=== PATIENT | female | born 1935 | race Caucasian/White ===

== ENCOUNTER 2017-08-07 21:31 | Inpatient (IN) | payer MEDICARE, MEDICAID ==
[~2017-08-07] VITALS: Ht 157.5 cm; Wt 81.8 kg
[2017-08-07 22:39] LABS: CALCIUM 9.3 mg/dL (8.5-10.1); CARBON DIOXIDE 22.6 mmol/L (21-32); CHLORIDE SERUM 105 mmol/L (98-107); CREATININE SERUM 0.8 mg/dL (0.6-1.0); GLUCOSE SERUM 135 mg/dL (74-106); POTASSIUM SERUM 3.9 mmol/L (3.5-5.1); SODIUM SERUM 140 mmol/L (136-145)
[2017-08-07 22:43] LABS: BASOPHIL % 0.9 % (0-2); PLATELET COUNT 403 x10^3mcL (130-400); RED CELL DISTRIBUTION WIDTH 16.6 % (11.5-14.5)
[2017-08-07 22:44] LABS: ALKALINE PHOSPHATASE 86 U/L (46-116); ALT/SGPT 21 U/L (14-59); AST/SGOT 16 U/L (15-37); BILIRUBIN TOTAL 0.83 mg/dL (0.20-1.00); TOTAL PROTEIN, SERUM 7.2 g/dL (6.4-8.2)
[2017-08-07 22:47] LABS: ALBUMIN 3.1 g/dL (3.4-5.0)
[2017-08-07 23:08] LABS: CK-MB 0.6 ng/mL (0-3.6)
[2017-08-07 23:09] LABS: microscopic required? YES; urine erythrocyte NEGATIVE (NEGATIVE)
[2017-08-07] MEDS ORDERED: ELIQUIS5 MG PO (23:53)
[2017-08-07] MEDS ORDERED: TOPROL XL25 MG PO (23:53)
[2017-08-07] MEDS ORDERED: HYDRALAZINE HCL25 MG PO (23:54)
[2017-08-07] MEDS ORDERED: LIPITOR80 MG PO (23:54)
[2017-08-07] MEDS ORDERED: LEVEMIR100 U/M1 SQ (23:56)
[2017-08-07] MEDS ORDERED: NOVI (23:56)
[2017-08-08] VITALS (7 sets, daily range): BP systolic 148–164; BP diastolic 84–99
[2017-08-08 01:56] LABS: FREE T4 1.14 ng/dL (0.76-1.46); FREE THYROXINE INDEX 2.7 ug/dL (1.4-4.5); T4(THYROXINE) 7.9 ug/dL (4.7-13.3)
[2017-08-08 01:57] LABS: T3 TOTAL 1.13 ng/mL
[2017-08-08 02:10] LABS: MAGNESIUM 1.8 mg/dL (1.8-2.4); PHOSPHOROUS 4.3 mg/dL (2.5-4.9)
[2017-08-08 02:22] LABS: CHOLESTEROL/HDL RATIO 2.6
[2017-08-08 06:47] LABS: BASOPHIL % 0.8 % (0-2); PLATELET COUNT 371 x10^3mcL (130-400)
[2017-08-08 06:54] LABS: RED CELL DISTRIBUTION WIDTH 16.4 % (11.5-14.5)
[2017-08-08 07:13] LABS: CALCIUM 8.8 mg/dL (8.5-10.1); CARBON DIOXIDE 22.1 mmol/L (21-32); CHLORIDE SERUM 107 mmol/L (98-107); CREATININE SERUM 0.8 mg/dL (0.6-1.0); GLUCOSE SERUM 143 mg/dL (74-106); POTASSIUM SERUM 3.7 mmol/L (3.5-5.1); SODIUM SERUM 140 mmol/L (136-145)
[2017-08-09 04:22] VITALS: BP 161/76
[2017-08-09 07:39] LABS: BASOPHIL % 0.3 % (0-2); PLATELET COUNT 385 x10^3mcL (130-400)
[2017-08-09 07:45] LABS: RED CELL DISTRIBUTION WIDTH 16.3 % (11.5-14.5)
[2017-08-09 07:54] LABS: CALCIUM 8.5 mg/dL (8.5-10.1); CARBON DIOXIDE 21.6 mmol/L (21-32); CHLORIDE SERUM 109 mmol/L (98-107); CREATININE SERUM 0.8 mg/dL (0.6-1.0); GLUCOSE SERUM 117 mg/dL (74-106); MAGNESIUM 1.6 mg/dL (1.8-2.4); PHOSPHOROUS 4.2 mg/dL (2.5-4.9); POTASSIUM SERUM 3.4 mmol/L (3.5-5.1); SODIUM SERUM 141 mmol/L (136-145)
[2017-08-09 09:26] VITALS: BP 176/90
[2017-08-09 12:44] VITALS: BP 163/94
[2017-08-09 21:18] VITALS: BP 148/91
[2017-08-10 05:21] VITALS: BP 151/82
[2017-08-10 07:14] LABS: CALCIUM 8.5 mg/dL (8.5-10.1); CARBON DIOXIDE 22.4 mmol/L (21-32); CHLORIDE SERUM 109 mmol/L (98-107); CREATININE SERUM 0.8 mg/dL (0.6-1.0); GLUCOSE SERUM 117 mg/dL (74-106); MAGNESIUM 2.1 mg/dL (1.8-2.4); POTASSIUM SERUM 3.6 mmol/L (3.5-5.1); SODIUM SERUM 141 mmol/L (136-145)
[2017-08-10 09:17] VITALS: BP 114/73
[2017-08-10 12:57] VITALS: Ht 157.5 cm; Wt 81.8 kg
[2017-08-10 16:40] VITALS: BP 161/86
[2017-08-10 22:07] VITALS: BP 161/72
[2017-08-11 05:47] VITALS: BP 158/90
[2017-08-11 07:04] LABS: BASOPHIL % 0.5 % (0-2); PLATELET COUNT 389 x10^3mcL (130-400)
[2017-08-11 07:19] LABS: CALCIUM 8.5 mg/dL (8.5-10.1); CARBON DIOXIDE 20.9 mmol/L (21-32); CHLORIDE SERUM 109 mmol/L (98-107); CREATININE SERUM 0.8 mg/dL (0.6-1.0); GLUCOSE SERUM 79 mg/dL (74-106); MAGNESIUM 1.8 mg/dL (1.8-2.4); POTASSIUM SERUM 3.1 mmol/L (3.5-5.1); RED CELL DISTRIBUTION WIDTH 16.3 % (11.5-14.5); SODIUM SERUM 143 mmol/L (136-145)
[2017-08-11 09:54] VITALS: BP 167/93
[2017-08-11 13:18] VITALS: BP 157/96
[2017-08-11 19:14] VITALS: BP 167/88
[2017-08-11 21:51] VITALS: BP 137/82
[2017-08-12 04:55] VITALS: BP 145/87
[2017-08-12 06:53] LABS: BASOPHIL % 0.2 % (0-2); PLATELET COUNT 390 x10^3mcL (130-400)
[2017-08-12 07:01] LABS: RED CELL DISTRIBUTION WIDTH 16.8 % (11.5-14.5)
[2017-08-12 07:18] LABS: CALCIUM 8.6 mg/dL (8.5-10.1); CARBON DIOXIDE 21.4 mmol/L (21-32); CHLORIDE SERUM 109 mmol/L (98-107); CREATININE SERUM 0.7 mg/dL (0.6-1.0); PHOSPHOROUS 4.1 mg/dL (2.5-4.9); POTASSIUM SERUM 3.3 mmol/L (3.5-5.1); SODIUM SERUM 142 mmol/L (136-145)
[2017-08-12 07:29] LABS: GLUCOSE SERUM 77 mg/dL (74-106); MAGNESIUM 1.7 mg/dL (1.8-2.4)
[2017-08-12 09:34] VITALS: BP 150/76
[2017-08-12 17:22] VITALS: BP 156/90
[2017-08-12 22:58] VITALS: BP 142/76
[2017-08-13 06:25] VITALS: BP 163/89
[2017-08-13 07:05] LABS: BASOPHIL % 0.3 % (0-2); PLATELET COUNT 361 x10^3mcL (130-400)
[2017-08-13 07:11] LABS: RED CELL DISTRIBUTION WIDTH 16.4 % (11.5-14.5)
[2017-08-13 08:13] LABS: CALCIUM 8.6 mg/dL (8.5-10.1); CHLORIDE SERUM 105 mmol/L (98-107); CREATININE SERUM 0.9 mg/dL (0.6-1.0); GLUCOSE SERUM 129 mg/dL (74-106); PHOSPHOROUS 3.9 mg/dL (2.5-4.9); POTASSIUM SERUM 3.7 mmol/L (3.5-5.1); SODIUM SERUM 139 mmol/L (136-145)
[2017-08-13 09:20] VITALS: BP 149/90
[2017-08-13] MEDS ORDERED: BACTRIM1 TAB PO (14:17)
[2017-08-13] MEDS ORDERED: BD LACTINEX1.4 MG PO (14:22)
[2017-08-13] MEDS ORDERED: MYCOC TOP (14:23)
[2017-08-13 16:03] VITALS: BP 155/90
[2017-08-13 17:01] VITALS: BP 151/97
== END 2017-08-13 18:26 | disposition home health service (06) | DRG 689 ==
LOC: ED 21:31 → MU 23:42 → DU 23:42 → MU 08-10 11:33
PROVIDERS: Emergency Medicine; Family Medicine
DX: N39.0 Urinary tract infection, site not specified (principal); G93.41 Metabolic encephalopathy; I69.951 Hemiplegia and hemiparesis following unspecified cerebrovascular disease affecting right dominant side; E44.0 Moderate protein-calorie malnutrition; B96.20 Unspecified Escherichia coli [E. coli] as the cause of diseases classified elsewhere; I48.2 Chronic atrial fibrillation; E11.65 Type 2 diabetes mellitus with hyperglycemia; I10 Essential (primary) hypertension; I69.021 Dysphasia following nontraumatic subarachnoid hemorrhage; B35.4 Tinea corporis; E87.6 Hypokalemia; E83.42 Hypomagnesemia; E66.9 Obesity, unspecified; Z68.33 Body mass index [BMI] 33.0-33.9, adult; Z79.01 Long term (current) use of anticoagulants; Z79.4 Long term (current) use of insulin
CPT/HCPCS: 82962; 83880; 84439; 92610; 97110-GP; 97112-GP; 97116-GP; 97530-GP; J0696; J1815; J3475; J3480; J7030; Q0092; Q9967

== ENCOUNTER 2018-02-24 17:56 | Inpatient (IN) | payer MEDICARE, MEDICAID ==
[~2018-02-24] VITALS: Ht 157.5 cm; Wt 74.6 kg
[~2018-02-24 17:56] MED LIST: BACTRIM1 TAB PO; BD LACTINEX1.4 MG PO; ELIQUIS5 MG PO; HYDRALAZINE HCL25 MG PO; LEVEMIR100 U/M1 SQ; LIPITOR80 MG PO; MYCOC TOP; NOVI; TOPROL XL25 MG PO
[2018-02-24 18:52] LABS: PLATELET COUNT 281 x10^3mcL (130-400)
[2018-02-24 19:00] LABS: CALCIUM 8.6 mg/dL (8.5-10.1); CARBON DIOXIDE 22.3 mmol/L (21-32); CHLORIDE SERUM 102 mmol/L (98-107); CREATININE SERUM 0.9 mg/dL (0.6-1.0); GLUCOSE SERUM 202 mg/dL (74-106); POTASSIUM SERUM 3.8 mmol/L (3.5-5.1); SODIUM SERUM 135 mmol/L (136-145)
[2018-02-24 19:04] LABS: RED CELL DISTRIBUTION WIDTH 16.2 % (11.5-14.5)
[2018-02-24 19:05] LABS: ALKALINE PHOSPHATASE 124 U/L (46-116); ALT/SGPT 58 U/L (14-59); BILIRUBIN TOTAL 0.86 mg/dL (0.20-1.00); TOTAL PROTEIN, SERUM 7.1 g/dL (6.4-8.2)
[2018-02-24 19:14] LABS: AST/SGOT 39 U/L (15-37)
[2018-02-24] MEDS ORDERED: KEPPRA500 MG PO (20:11)
[2018-02-24 20:29] LABS: UA SPECIFIC GRAVITY <=1.005 (1.005-1.035); microscopic required? YES; urine erythrocyte NEGATIVE (NEGATIVE)
[2018-02-24 21:00] LABS: MAGNESIUM 1.6 mg/dL (1.8-2.4); PHOSPHOROUS 4.5 mg/dL (2.5-4.9)
[2018-02-24 21:08] LABS: CHOLESTEROL/HDL RATIO 2.4
[2018-02-24 21:13] LABS: T3 TOTAL 0.92 ng/mL
[2018-02-24 21:20] VITALS: BP 124/87
[2018-02-24 21:25] LABS: FREE T4 0.81 ng/dL (0.76-1.46); FREE THYROXINE INDEX 2.1 ug/dL (1.4-4.5); T4(THYROXINE) 6.2 ug/dL (4.7-13.3)
[2018-02-25 02:30] VITALS: BP 123/76
[2018-02-25 05:25] VITALS: BP 133/74
[2018-02-25 05:59] LABS: BASOPHIL % 0.5 % (0-2); PLATELET COUNT 236 x10^3mcL (130-400)
[2018-02-25 06:05] LABS: RED CELL DISTRIBUTION WIDTH 15.6 % (11.5-14.5)
[2018-02-25 06:19] LABS: CALCIUM 8.5 mg/dL (8.5-10.1); CARBON DIOXIDE 22.6 mmol/L (21-32); CHLORIDE SERUM 107 mmol/L (98-107); CREATININE SERUM 0.9 mg/dL (0.6-1.0); GLUCOSE SERUM 181 mg/dL (74-106); POTASSIUM SERUM 3.6 mmol/L (3.5-5.1); SODIUM SERUM 139 mmol/L (136-145)
[2018-02-25 08:50] VITALS: BP 133/69
[2018-02-25 12:21] VITALS: BP 130/75
[2018-02-25 17:40] VITALS: BP 133/77
[2018-02-25 21:06] VITALS: BP 122/64
[2018-02-26 05:24] VITALS: BP 122/59
[2018-02-26 06:56] LABS: BASOPHIL % 0.7 % (0-2); PLATELET COUNT 212 x10^3mcL (130-400)
[2018-02-26 07:14] LABS: CALCIUM 8.4 mg/dL (8.5-10.1); CHLORIDE SERUM 108 mmol/L (98-107); CREATININE SERUM 0.8 mg/dL (0.6-1.0); GLUCOSE SERUM 139 mg/dL (74-106); MAGNESIUM 2.1 mg/dL (1.8-2.4); PHOSPHOROUS 3.8 mg/dL (2.5-4.9); SODIUM SERUM 140 mmol/L (136-145)
[2018-02-26 09:28] VITALS: BP 124/103
[2018-02-26 17:04] VITALS: BP 143/78
[2018-02-26 21:08] VITALS: BP 151/69
[2018-02-27 05:45] VITALS: BP 133/72
[2018-02-27 06:14] LABS: CALCIUM 8.3 mg/dL (8.5-10.1); CARBON DIOXIDE 23.9 mmol/L (21-32); CHLORIDE SERUM 106 mmol/L (98-107); CREATININE SERUM 0.8 mg/dL (0.6-1.0); GLUCOSE SERUM 139 mg/dL (74-106); POTASSIUM SERUM 3.7 mmol/L (3.5-5.1); SODIUM SERUM 140 mmol/L (136-145)
[2018-02-27 06:17] LABS: BASOPHIL % 0.4 % (0-2); PLATELET COUNT 237 x10^3mcL (130-400)
[2018-02-27 06:18] LABS: RED CELL DISTRIBUTION WIDTH 15.6 % (11.5-14.5)
[2018-02-27 09:48] VITALS: BP 140/88
[2018-02-27 16:10] VITALS: BP 131/84
[2018-02-27 21:26] VITALS: BP 137/81
[2018-02-28 05:37] LABS: BASOPHIL % 1.6 % (0-2); PLATELET COUNT 225 x10^3mcL (130-400)
[2018-02-28 05:41] LABS: RED CELL DISTRIBUTION WIDTH 15.9 % (11.5-14.5)
[2018-02-28 05:57] LABS: CALCIUM 8.5 mg/dL (8.5-10.1); CARBON DIOXIDE 23.4 mmol/L (21-32); CHLORIDE SERUM 104 mmol/L (98-107); CREATININE SERUM 0.8 mg/dL (0.6-1.0); GLUCOSE SERUM 136 mg/dL (74-106); MAGNESIUM 1.7 mg/dL (1.8-2.4); PHOSPHOROUS 4.1 mg/dL (2.5-4.9); POTASSIUM SERUM 3.6 mmol/L (3.5-5.1); SODIUM SERUM 139 mmol/L (136-145)
[2018-02-28 06:08] VITALS: BP 124/78
[2018-02-28] MEDS ORDERED: BACTRIM DS1 TAB PO (08:03)
[2018-02-28] MEDS ORDERED: BD LACTINEX1.4 MG PO (08:03)
[2018-02-28 09:08] VITALS: BP 155/54
[2018-02-28 15:22] VITALS: BP 155/54
[2018-03-01 14:49] VITALS: Ht 157.5 cm; Wt 74.6 kg
== END 2018-02-28 15:53 | DRG 689 ==
LOC: ED 17:56 → MU 19:33 → DU 19:33 → MU 20:57 → DU 02-25 01:28 → MU 02-25 15:01
PROVIDERS: Emergency Medicine; Family Medicine
DX: N39.0 Urinary tract infection, site not specified (principal); N17.0 Acute kidney failure with tubular necrosis; E44.0 Moderate protein-calorie malnutrition; I69.353 Hemiplegia and hemiparesis following cerebral infarction affecting right non-dominant side; D68.69 Other thrombophilia; G90.9 Disorder of the autonomic nervous system, unspecified; E11.51 Type 2 diabetes mellitus with diabetic peripheral angiopathy without gangrene; E11.65 Type 2 diabetes mellitus with hyperglycemia; I48.2 Chronic atrial fibrillation; E83.42 Hypomagnesemia; I69.322 Dysarthria following cerebral infarction; I10 Essential (primary) hypertension; E78.5 Hyperlipidemia, unspecified; Z85.030 Personal history of malignant carcinoid tumor of large intestine; Z85.42 Personal history of malignant neoplasm of other parts of uterus; Z79.01 Long term (current) use of anticoagulants
CPT/HCPCS: 82962; 83880; 84439; 97116-GP; 97530-GP; J0696; J3475; J7030; J8597; Q0092

== ENCOUNTER 2018-07-24 11:15 | Emergency (ER) | payer OTHER, MEDICARE ==
[~2018-07-24] VITALS: Ht 154.9 cm; Wt 75.3 kg
[~2018-07-24 11:15] MED LIST changes: +BACTRIM DS1 TAB PO; +KEPPRA500 MG PO
[2018-07-24 11:19] VITALS: BP 118/86; Ht 154.9 cm; Wt 75.3 kg
[2018-07-24 12:12] LABS: BASOPHIL % 0.2 % (0-2); PLATELET COUNT 237 x10^3mcL (130-400)
[2018-07-24 12:14] LABS: RED CELL DISTRIBUTION WIDTH 15.1 % (11.5-14.5)
[2018-07-24 12:22] LABS: CALCIUM 8.1 mg/dL (8.5-10.1); CARBON DIOXIDE 23.1 mmol/L (21-32); CHLORIDE SERUM 103 mmol/L (98-107); CREATININE SERUM 1.1 mg/dL (0.6-1.0); GLUCOSE SERUM 347 mg/dL (74-106); POTASSIUM SERUM 3.8 mmol/L (3.5-5.1); SODIUM SERUM 136 mmol/L (136-145)
[2018-07-24 12:27] LABS: ALKALINE PHOSPHATASE 87 U/L (46-116); ALT/SGPT 52 U/L (14-59); AST/SGOT 44 U/L (15-37); BILIRUBIN TOTAL 0.92 mg/dL (0.20-1.00)
[2018-07-24 12:28] LABS: ALBUMIN 2.8 g/dL (3.4-5.0)
== END 2018-07-24 12:09 | disposition home or self-care (01) ==
LOC: ED 11:15
PROVIDERS: Emergency Medicine
DX: I63.9 Cerebral infarction, unspecified (principal); E11.9 Type 2 diabetes mellitus without complications; M19.90 Unspecified osteoarthritis, unspecified site; Z98.890 Other specified postprocedural states; Z88.5 Allergy status to narcotic agent
CPT/HCPCS: 36415; Q0092

== ENCOUNTER 2018-09-26 11:35 | Emergency (ER) | payer MEDICARE, MEDICAID ==
[~2018-09-26] VITALS: Ht 154.9 cm; Wt 81.6 kg
[2018-09-26 11:47] VITALS: Ht 154.9 cm; Wt 81.6 kg
[2018-09-26 12:53] LABS: BASOPHIL % 0.1 % (0-2); PLATELET COUNT 216 x10^3mcL (130-400)
[2018-09-26 12:59] LABS: CALCIUM 8.7 mg/dL (8.5-10.1); CARBON DIOXIDE 22.1 mmol/L (21-32); CHLORIDE SERUM 104 mmol/L (98-107); CREATININE SERUM 1.1 mg/dL (0.6-1.0); GLUCOSE SERUM 340 mg/dL (74-106); POTASSIUM SERUM 4.2 mmol/L (3.5-5.1); SODIUM SERUM 138 mmol/L (136-145)
[2018-09-26 13:02] LABS: UA SPECIFIC GRAVITY 1.015 (1.005-1.035); microscopic required? YES; urine erythrocyte NEGATIVE (NEGATIVE)
[2018-09-26 13:04] LABS: ALBUMIN 2.9 g/dL (3.4-5.0); ALKALINE PHOSPHATASE 111 U/L (46-116); ALT/SGPT 79 U/L (14-59); AST/SGOT 70 U/L (15-37); BILIRUBIN TOTAL 1.07 mg/dL (0.20-1.00); TOTAL PROTEIN, SERUM 7.5 g/dL (6.4-8.2)
[2018-09-26 14:35] VITALS: BP 138/74
== END 2018-09-26 14:35 | disposition home or self-care (01) ==
LOC: ED 11:35
PROVIDERS: Specialist
DX: N39.0 Urinary tract infection, site not specified (principal); M19.90 Unspecified osteoarthritis, unspecified site; E11.9 Type 2 diabetes mellitus without complications; Z88.5 Allergy status to narcotic agent
CPT/HCPCS: 36415; J0696

== ENCOUNTER 2018-10-08 10:36 | Emergency (ER) | payer OTHER, MEDICAID ==
[~2018-10-08] VITALS: Ht 152.4 cm; Wt 77.1 kg
[2018-10-08 10:51] VITALS: Ht 152.4 cm; Wt 77.1 kg
[2018-10-08 11:43] LABS: BASOPHIL % 0.9 % (0-2); PLATELET COUNT 143 x10^3mcL (130-400)
[2018-10-08 11:51] LABS: CALCIUM 8.3 mg/dL (8.5-10.1); CHLORIDE SERUM 102 mmol/L (98-107); GLUCOSE SERUM 328 mg/dL (74-106); POTASSIUM SERUM 4.2 mmol/L (3.5-5.1); SODIUM SERUM 133 mmol/L (136-145)
[2018-10-08 11:56] LABS: ALBUMIN 2.9 g/dL (3.4-5.0); ALKALINE PHOSPHATASE 108 U/L (46-116); ALT/SGPT 66 U/L (14-59); AST/SGOT 60 U/L (15-37); BILIRUBIN TOTAL 1.06 mg/dL (0.20-1.00); TOTAL PROTEIN, SERUM 7.3 g/dL (6.4-8.2)
[2018-10-08 12:36] LABS: microscopic required? NO
[2018-10-08 13:16] LABS: urine erythrocyte NEGATIVE (NEGATIVE)
[2018-10-08 14:12] VITALS: BP 113/75
== END 2018-10-08 14:12 | disposition home or self-care (01) ==
LOC: ED 10:36
PROVIDERS: Emergency Medicine
DX: B36.9 Superficial mycosis, unspecified (principal); E11.9 Type 2 diabetes mellitus without complications; Z88.5 Allergy status to narcotic agent; Z86.73 Personal history of transient ischemic attack (TIA), and cerebral infarction without residual deficits
CPT/HCPCS: 36415; J7030; Q0092